=== PATIENT | male | born 1985 | race Caucasian/White ===

== ENCOUNTER 2022-09-15 09:34 | Emergency (ER) | payer OTHER, SELFPAY ==
[2022-09-15] VITALS (10 sets, daily range): BP systolic 133–158; BP diastolic 89–102; PULSE 50–57; RESP 18; TEMP 36.6; O2SAT 95–98; BMI 26.4
--- NOTE | 2022-09-15 10:09 | ED_ITS ---
HPI - General Adult General Time Seen by Provider: 10:09 Date Seen: 09/15/22 Chief complaint: Flank Pain Stated complaint: possible kidney stone flank pain Time Seen by Provider: 09/15/22 10:09 Source: patient and RN notes reviewed Mode of arrival: ambulatory Limitations: no limitations History of Present Illness HPI narrative: Patient is a 37-year-old male coming in with increasing right flank pain radiating down towards the right groin, concern for kidney stone. Today is Saturday, patient has had symptoms since Saturday that were intermittent. Last night and this morning patient started having more intense pain. Was able to get some sleep for while last night but awoke this morning pain was severe again. Some nausea but no vomiting yet. No fevers or chills. No change in urination, no hematuria. No change in bowel habits. No concerns for any other illness, no respiratory symptoms. Has had a history of kidney stones requiring lithotripsy and stent placement, last maybe about 10 years ago. Related Data Previous Rx's Medication Instructions Recorded methylphenidate HCl 36 mg 72 mg PO QAM #60 tabs 06/05/22 tablet,extended release 24 hr (Concerta) methylphenidate HCl 36 mg 72 mg PO QAM #60 tabs 06/05/22 tablet,extended release 24 hr (Concerta) methylphenidate HCl 36 mg 72 mg PO QDAY #60 tabs 06/05/22 tablet,extended release 24 hr (Concerta) Allergies Allergy/AdvReac Type Severity Reaction Status Date / Time No Known Allergies Allergy Unknown Verified 09/15/22 09:40 Review of Systems Status of ROS: Reports: 10 or more systems reviewed and unremarkable except as noted in History and below PFSH PFS Surgical History (Updated 09/05/22 @ 14:12 by Rebecca Escalona LPN) History of hernia repair Status post vasectomy Family History (Updated 05/31/22 @ 14:17 by Diaz Kelley) Mother CHF (congestive heart failure) Social History (Updated 05/31/22 @ 14:17 by Diaz Kelley) Narrative: has 3 children Smoking Status: Current every day smoker What tobacco products do you use: cigarettes Smoking packs per day: 0.5 Smoking cigarettes per day: 10.0 Years smoked: 23 Smoking pack-years: 11.50 Do you use any of these nicotine containing products: None Second hand tobacco smoke exposure: No How often do you have a drink containing alcohol: 2-4 times a month How many standard drinks containing alcohol do you have on a typical day: 1 or 2 How often do you have six or more drinks on one occasion: Never AUDIT-C Alcohol total score: 2 Non-prescribed substance use: denies use service: No Exam Const: Vital Signs, click to edit/add: Vital Signs - 24 hr 09/15/22 09:41 09/15/22 10:52 09/15/22 10:53 Temperature 97.8 F Pulse Rate 52 L 53 L Pulse Rate [Pulse Oximeter] 54 L Respiratory Rate 18 Blood Pressure 145/89 H Blood Pressure [Le ft Upper Arm] 158/102 H Pulse Oximetry 98 97 Oxygen Delivery [place] Room Air 09/15/22 10:54 09/15/22 11:00 09/15/22 11:02 Temperature Pulse Rate 53 L 50 L 53 L Pulse Rate [Pulse Oximeter] Respiratory Rate Blood Pressure 143/90 H Blood Pressure [Le ft Upper Arm] Pulse Oximetry 98 96 95 Oxygen Delivery Me od 09/15/22 11:32 09/15/22 12:00 09/15/22 12:01 Temperature Pulse Rate 57 L 53 L 52 L Pulse Rate [Pulse Oximeter] Respiratory Rate Blood Pressure 133/89 Blood Pressure [Le ft Upper Arm] Pulse Oximetry 96 96 96 Oxygen Delivery [place] 09/15/22 12:02 Temperature Pulse Rate 54 L Pulse Rate [Pulse Oximeter] Respiratory Rate Blood Pressure Blood Pressure [Le ft Upper Arm] Pulse Oximetry 97 Oxygen Delivery [place] 37-year-old male lying in bed, looks mildly uncomfortable but is pleasant and cooperative. Certainly no significant distress at this time. Documenting provider has reviewed patient's vital signs: yes Common normals: average body habitus, oriented x3, no limitations, healthy appearing, alert and well nourished HENMT: Common normals: normocephalic, head/scalp atraumatic and hearing grossly normal bilaterally Head and scalp: normocephalic and atraumatic Eye: Common normals: PERRL, EOMs intact bilaterally, conjunctivae normal and no scleral icterus Conjunctiva: conjunctiva(e) normal Pupil: PERRL Neck & C-Spine: Common normals: full ROM, no lymphadenopathy, supple, no men ingeal signs, no JVD and thyroid normal Thyroid: thyroid normal Resp: Common normals: normal respiratory effort, no retractions, no use of accessory muscles and clear to auscultation bilaterally Auscultation: clear to auscultation bilaterally Cardio: Common normals: no JVD, regular rate, regular rhythm, S1 normal heart sound, S2 normal heart sound, no gallops, no clicks, no murmurs and no rub Rate: regular rate Rhythm: regular rhythm Heart sounds: S1 normal and S2 normal GI: Common normals: Normal to inspection, nondistended, normoactive bowel sounds present, soft to palpation, non-tender, no hepatosplenomegaly and no masses (No inguinal adenopathy or masses) Palpation: soft and no hepatosplenomegaly Neuro: Common normals: oriented x3 and moves all extremities Sensorium/orientation: alert Meningeal signs: no meningeal signs Speech: speech normal Course Course Hospital Course: We will initiate IV fluids, IV Toradol and Zofran. Patient will have a noncontrast CT to identify any stone pathology. Will get basic labs with a CBC, basic metabolic panel and urinalysis. Reevaluation(s) Reevaluation #1: Reviewed with patient that he indeed has a kidney stone of the right collecting system. Unfortunately, this is 1.1cm and is very unlikely to pass without intervention. He has not been to urology in about 10 years. Reviewed urology options, would be [facility] or [facility]; he prefers [facility]. Placed call in for urology through transfer center at 11:54am. Once they have our CT scan and patient registration done, they will page urology. Patient did require subsequent IV dose of morphine for adequate pain management. Time: 11:50 Reevaluation #2: Have explained to patient that he requires a catheterized urinalysis as requested by [facility]. He does consent to that. I have ordered Uro jet for some comfort for him. Have discussed with him his options of waiting for outpatient appointment which maybe up to 4 weeks per urology or transfer ED to ED with plan to go to the OR for stent placement. He prefers the latter. I will call [facility] back and let them know that that is our plan. Time: 13:14 Consultations Consultation #1: Spoke with Dr. Winn in Urology from [facility]. He wanted us to collect a cathete rized urinalysis just to ensure there was no infection. White count is minimally elevated, our urinalysis is not definitively showing infection but is not 100% clean either. He offered 2 options. He would put an order in and ask the secretaries to have the patient placed in the clinic as soon as possible. He did note that there Clinic is out about 4-6 weeks and that is with already double booking. Thus, it may be a wait. He stated alternatively due to the patient's more severe pain today, transfer ER to ER could be done and they could take the patient in for stent placement. He would want us to have the catheterized urinalysis pending and results sent to him in the ER. I will discuss this with the patient and call them back. Note, did call Franchesca the extractions technician back with the patient's decision to transfer to [facility] ER. It will be Dr. Espinoza that is the accepting ED doctor. Time: 13:03 Vital Signs Vital signs: Initial Vital Signs Temperature 97.8 F 09/15/22 09:41 Temperature Source Temporal Artery Scan 09/15/22 09:41 Pulse Rate 54 L 09/15/22 09:41 Pulse Rhythm 09/15/22 09:41 Respiratory Rate 18 09/15/22 09:41 Blood Pressure 158/102 H 09/15/22 09:41 Blood Pressure Mean 120 09/15/22 09:41 Blood Pressure Position Supine 09/15/22 09:41 Oxygen Delivery Method 09/15/22 09:41 Vital Signs Temperature 97.8 F 09/15/22 09:41 Pulse Rate 54 L 09/15/22 09:41 Respiratory Rate 18 09/15/22 09:41 Blood Pressure 158/102 H 09/15/22 09:41 Oxygen Delivery Method 09/15/22 09:41 Temperature 97.8 F 09/15/22 09:41 Pulse Rate 54 L 09/15/22 12:02 Respiratory Rate 18 09/15/22 09:41 Blood Pressure 133/89 09/15/22 12:01 Pulse Oximetry 97 09/15/22 12:02 Oxygen Delivery Method 09/15/22 09:41 Medical Decision Making Lab Data Lab results reviewed: Yes I reviewed the patient's lab results Labs: Lab Results 12/17/22 12/17/22 12/17/22 Range/Units 10:10 10:10 11:20 WBC 11.13 H (4.50-11.00) K/uL RBC 4.75 (4.30-5.90) m/uL Hgb 13.8 (13.5-17.5) gm/dL Hct 40.7 (37.0-53.0) % MCV 86 (80-100) fL MCH 29 (26-34) pg MCHC 34 (32-36) gm/dL RDW Coeff of Stayc 12.0 (11.5-15.5) % Plt Count 266 (140-440) K/uL Neut % (Auto) 76.2 H (42.0-72.0) % Lymph % (Auto) 16.0 L (20-44) % [place] % (Auto) 7.0 (0.0-11.0) % Eos % (Auto) 0.4 (0.0-7.0) % Baso % (Auto) 0.3 (0.0-3.0) % Neut # (Auto) 8.50 H (1.7-7.0) K/uL Lymph # (Auto) 1.80 (0.90-2.90) K/uL [place] # (Auto) 0.80 (0.00-0.90) K/UL Eos # (Auto) 0.00 (0.00-0.50) K/uL Baso # (Auto) 0.00 (0.00-0.30) K/uL Sodium 138 (135-149) mmol/L Potassium 3.7 (3.6-5.1) mmol/L Chloride 104 (96-114) mmol/L Carbon Dioxide 26 (20-32) mmol/L BUN 17 (5-24) mg/dL Creatinine 0.8 (0.5-1.5) mg/dL Estimated Creat Clear 137.42 Estimated GFR 116 ml/min Glucose 103 (60-115) mg/dL Calcium 9.6 (8.4-10.6) mg/dL Urine Color Yellow (Yellow) Urine Appearance Clear (Clear) Urine pH 6.0 (5.0-8.5) Ur Specific [place] 1.010 (1.000-1.030) Urine Protein Negative (Negative) Urine Glucose (UA) Negative (Negative) Urine Ketones Trace A (Negative) Urine Blood 2+ A (Negative) Urine Nitrite Negative (Negative) Urine Bilirubin Negative (Negative) Urine Urobilinogen 0.2 (0.2-1.0) Ur Leukocyte Esterase 1+ A (Negative) Urine RBC 2-5 A (0-2) Urine WBC 5-10 A (0-5) Ur Squamous Epith Cells Few (None-Few) Urine Bacteria Few A (None) Imaging Data CT scan - abdomen: Attestation: I have reviewed the pertinent imaging results. My impression: Can see some hydronephrosis on the right side, larger stone proximally. Will await Radiology over-read. Radiologist's impression: Patient: NELL SCHROEDER Facility:?[facility] Patient ID:?[id number] Site Patient ID:?[id number]. Site :?[id number] Study:?CT Abdomen/Pelvis stone study-09/15/2022 10:36:05 AM Ordering Physician:?Jack Rosas Final Report: Indication: Question renal colic Technique: Noncontrast CT abdomen and pelvis Comparison: No comparison Findings: Heart size is normal lung bases are clear unenhanced spleen liver adrenal glands unremarkable pancreas gallbladder unremarkable. Nonobstructing renal calculi or hydronephrosis. Small nonobstructing right renal calculi as well. Low-attenuation lesion right lower pole incompletely characterize. Right inferior 1.7 centimeter dense lesion incompletely assessed to be related to hyperdense cyst but solid lesion not excluded. Too small to characterize low-attenuation lesions in the right kidney. There is moderate to severe hydronephrosis with a 1.1 centimeter right proximally ureteral stone the urinary bladder unremarkable. Prostate gland unremarkable. Bowel is unremarkable.Findings of probable inguinal hernia appearing possibly ventral hernia repair. Abundant stool in the colon bowel unremarkable. No suspicious bony lesions. Impression: 1. Moderate to severe right hydronephrosis with a 1.1 cm right proximal ureteral stone. Additional bilateral nonobstructing renal calculi. Low-attenuation lesion right kidney incompletely assessed additional 1.7 cm right inferior dense lesion incompletely assessed as well. This could represent a solid lesion versus hyperdense cyst. Renal ultrasound could be considered on a routine basis. Please note that all CT scans at this facility use dose modulation, iterative reconstruction, and/or weight-based dosing when appropriate to reduce radiation dose to as low as reasonably achievable. Dictated by Rosalina Montgomery MD @ 09/15/2022 11:36:34 AM (Electronic Signature) Critical Care Time Critical Care Time Critical Care Time: No Discharge Plan Discharge Clinical Impression: Urinary tract obstruction due to kidney stone, Hydronephrosis of right kidney Patient Disposition: [facility] Discharge Location: Condition: Stable Additional Instructions: Proceed directly to the ER at [facility]. Do not eat or drink any food in route. Prescriptions: No Action methylphenidate HCl [Concerta] 36 mg tablet extended release 24hr 72 mg PO QAM Qty: 60 0RF methylphenidate HCl [Concerta] 36 mg tablet extended release 24hr 72 mg PO QAM Qty: 60 0RF methylphenidate HCl [Concerta] 36 mg tablet extended release 24hr 72 mg PO QDAY Qty: 60 0RF Follow Up/Referrals: Arely Wall PA-C [Primary Care Provider] - Stand Alone Forms: [employer] Info Instructions
--- NOTE | 2022-09-15 10:13 | CRLHL7_ITS ---
For Patients: As a result of the Century Cures Act, medical imaging exams and procedure reports are released immediately into your electronic medical record. You may view this report before your referring provider. If you have questions, please contact your health care provider. Indication: Question renal colic Technique: Noncontrast CT abdomen and pelvis Comparison: No comparison Findings: Heart size is normal lung bases are clear unenhanced spleen liver adrenal glands unremarkable pancreas gallbladder unremarkable. Nonobstructing renal calculi or hydronephrosis. Small nonobstructing right renal calculi as well. Low-attenuation lesion right lower pole incompletely characterize. Right inferior 1.7 centimeter dense lesion incompletely assessed to be related to hyperdense cyst but solid lesion not excluded. Too small to characterize low-attenuation lesions in the right kidney. There is moderate to severe hydronephrosis with a 1.1 centimeter right proximally ureteral stone the urinary bladder unremarkable. Prostate gland unremarkable. Bowel is unremarkable.Findings of probable inguinal hernia appearing possibly ventral hernia repair. Abundant stool in the colon bowel unremarkable. No suspicious bony lesions. Impression: 1. Moderate to severe right hydronephrosis with a 1.1 cm right proximal ureteral stone. Additional bilateral nonobstructing renal calculi. Low-attenuation lesion right kidney incompletely assessed additional 1.7 cm right inferior dense lesion incompletely assessed as well. This could represent a solid lesion versus hyperdense cyst. Renal ultrasound could be considered on a routine basis. Please note that all CT scans at this facility use dose modulation, iterative reconstruction, and/or weight-based dosing when appropriate to reduce radiation dose to as low as reasonably achievable. Dictated by Rosalina Montgomery MD @ 09/15/2022 11:36:34 AM (Electronically Signed)
[2022-09-15] MEDS: 0.9 % SODIUM CHLORIDE 1000 ml 1,000 ML 500 ML IV (10:20)
[2022-09-15] MEDS: KETOROLAC 15 MG/ML inj IVP (10:21)
[2022-09-15] MEDS: ONDANSETRON 2 MG/ML inj 4 MG IVP (10:23)
[2022-09-15 10:27] LABS: Basophils Percent Auto 0.3 % (0.0-3.0); Eosinophils Percent Auto 0.4 % (0.0-7.0); Hematocrit 40.7 % (37.0-53.0); Hemoglobin* 13.8 gm/dL (13.5-17.5); Immature Granulocytes Pct Auto 0.1 %; Mean Corpuscular HGB Conc 34 gm/dL (32-36); Mean Corpuscular Hemoglobin 29 pg (26-34); Mean Corpuscular Volume 86 fL (80-100); Neutrophils Percent Auto 76.2 % (42.0-72.0); Platelet Count* 266 K/uL (140-440); Red Blood Count 4.75 m/uL (4.30-5.90); White Blood Count* 11.13 K/uL (4.50-11.00)
[2022-09-15 10:33] LABS: Slide Review Reflex No
[2022-09-15 10:36] LABS: Chloride* 104 mmol/L (96-114); Sodium* 138 mmol/L (135-149)
[2022-09-15 10:37] LABS: Potassium* 3.7 mmol/L (3.6-5.1)
[2022-09-15 10:39] LABS: Carbon Dioxide* 26 mmol/L (20-32); Creatinine* 0.8 mg/dL (0.5-1.5); Est. Creatinine Clearance* 137.42; Estimated Glomerular Filt Rate 116 ml/min
[2022-09-15 10:40] LABS: Blood Urea Nitrogen* 17 mg/dL (5-24); Calcium* 9.6 mg/dL (8.4-10.6); Glucose* 103 mg/dL (60-115)
[2022-09-15] MEDS: MORPHINE 4 MG/ML INJ IVP (10:52)
[2022-09-15 13:33] LABS: Appearance Urine Clear (Clear); Bilirubin Urine Negative (Negative); Blood Urine 2+ (Negative); Color Urine Yellow (Yellow); Glucose Urine Negative (Negative); Ketones Urine Negative (Negative); Leukocyte Esterase Urine Trace (Negative); Nitrite Urine Negative (Negative); Protein Urine Negative (Negative); Specific Gravity Urine <= 1.005 (1.000-1.030); Urobilinogen Urine 0.2 (0.2-1.0)
[2022-09-15 14:15] LABS: RBC Urine 0-2 (0-2); WBC Urine 0-2 (0-5)
[2022-09-15 14:25] LABS: SARS PCR* Negative SARS-CoV-2 (Negative)
== END 2022-09-15 13:25 | disposition short-term general hospital (02) ==
PROVIDERS: Emergency Provider Family Medicine; PCP Physician Assistant Medical
DX: N13.2 Hydronephrosis with renal and ureteral calculous obstruction (principal)
CPT/HCPCS: 36415; 74176; 80048; 81001; 85025; 87086; 87635; 96374; 96375; 99284; J1885; J2270; J2405; J7030

== ENCOUNTER 2023-03-27 14:56 | Outpatient (CLI) | payer OTHER, SELFPAY | END 2023-03-27 14:57 | disposition home or self-care (01) | PROVIDERS: PCP Physician Assistant Medical; Visit Provider Physician Assistant Medical | DX: Z00.00 Encounter for general adult medical examination without abnormal findings (principal); F98.8 Other specified behavioral and emotional disorders with onset usually occurring in childhood and adolescence; Z13.6 Encounter for screening for cardiovascular disorders | CPT/HCPCS: 80061; 84450; 84460 ==